=== PATIENT | female | born 1975 | race Caucasian/White ===

== ENCOUNTER 2017-05-25 18:59 | Emergency (ER) | payer BC ==
[2017-05-25] MEDS ORDERED: PROCHLORPERAZINE MALEATE 5 MG TABLET PO ONE (20:06)
[2017-05-25] MEDS ORDERED: HYDROCODONE/ACETAMINOPHEN 5-325 MG TABLET PO ONE (20:06)
[2017-05-25] MEDS ORDERED: PROCHLORPERAZINE MALEATE 10 MG TABLET ONE (20:20)
--- NOTE | 2017-05-25 20:47 | ER Document Report ---
ED Fall <LA ANDERSON - Last Filed: 05/25/17 21:19> - General Mode of Arrival: Ambulatory Information source: Patient TRAVEL OUTSIDE OF THE [place] IN LAST 30 DAYS: No <ALFREDO KIMBROUGH - Last Filed: 05/25/17 22:17> - General Chief Complaint: Fall Injury Stated Complaint: FALL/HEAD LACERATION Time Seen by Provider: 05/25/17 19:52 Notes: Patient is a 41 year old female presenting to the ED for a fall. Patient states she slipped on a plastic bag and fell into a glass cabinet. Patient states she broke the glass and complains of headache, pain to her skin where she got cut from the glass, and states her neck is stiff. Patient states she has a history of migraines and her headache feels similar to such but it she believes it is being caused by the injury. Patient states she normally takes ibuprofen and sleeps when she gets a migraine. Patient states she may have glass in her hair. Patient also has a history of anxiety and depression. 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 PCP: Katalina Alegria (ALFREDO KIMBROUGH) - Related data Allergies/Adverse Reactions: Pork/Porcine Containing Products Allergy (Verified 05/25/17 19:18) shellfish derived Allergy (Verified 05/25/17 19:18) Sulfa (Sulfonamide Antibiotics) Allergy (Verified 05/25/17 19:13) Past Medical History - General Information source: Patient - Social History Smoking Status: Never Smoker Cigarette use (# per day): No Chew tobacco use (# tins/day): No Smoking Education Provided: No Frequency of alcohol use: None Drug Abuse: None Family History: None Patient has suicidal ideation: No Patient has homicidal ideation: No Neurological Medical History: Reports: Hx Migraine Psychiatric Medical History: Reports: Hx Anxiety, Hx Depression Past Surgical History: Reports: Other - eye surgery as a child to fix cross-eyed <ALFREDO KIMBROUGH - Last Filed: 05/25/17 22:17> Review of Systems - Review of Systems Constitutional: No symptoms reported EENT: No symptoms reported Cardiovascular: No symptoms reported Respiratory: No symptoms reported Gastrointestinal: No symptoms reported Genitourinary: No symptoms reported Female Genitourinary: No symptoms reported Musculoskeletal: See HPI, Neck pain, Other - head/scalp pain Skin: See HPI, Other - laceration Hematologic/Lymphatic: No symptoms reported Neurological/Psychological: See HPI, Headaches -: Yes All other systems reviewed and negative <ALFREDO KIMBROUGH - Last Filed: 05/25/17 22:17> Physical Exam <MONICA,LA - Last Filed: 05/25/17 21:19> - Vital signs Interpretation: Normal <ALFREDO KIMBROUGH - Last Filed: 05/25/17 22:17> - Vital signs Vitals: Temp Pulse Resp BP Pulse Ox 98 F 75 16 137/89 H 96 05/25/17 19:13 05/25/17 19:13 05/25/17 19:13 05/25/17 19:13 05/25/17 19:13 - Notes Notes: GENERAL: Alert, interacts well. No acute distress. HEAD: Normocephalic. Small superficial laceration to the forehead just right to midline and located at the hairline. Tenderness with palpation around this area and into the scalp. EYES: Appear normal. Pupils equal, round, and reactive to light. ENT: Moist mucus membranes, tongue midline. NECK: C-collar in place. Tenderness to palpation to the upper cervical spine. LUNGS: Clear to auscultation bilaterally, no wheezes, rales, or rhonchi. No respiratory distress. HEART: Regular rate and rhythm. No murmurs, gallops, or rubs. ABDOMEN: Soft, non-tender. Non-distended. Normal bowel sounds. EXTREMITIES: Moves all 4 extremities spontaneously. Normal strength. No edema. NEUROLOGICAL: Alert and oriented x3. Normal speech. No focal neurological deficits. GCS 15. PSYCH: Normal affect, normal mood. SKIN: Warm, dry, normal turgor. No rashes or lesions noted. (ALFREDO KIMBROUGH) Course - Diagnostic Test Radiology reviewed: Image reviewed, Reports reviewed - CT scan cervical spine is unremarkable, CT of the head shows extensive sinus disease with acute sinusitis. <LA ANDERSON - Last Filed: 05/25/17 21:19> <ALFREDO KIMBROUGH - Last Filed: 05/25/17 22:17> - Re-evaluation Re-evalutation: 05/25/17 21:[address] scans do not show acute injury, however it does show extensive sinus disease with acute sinusitis. The patient reports that she is currently on Ceftin for the sinus disease, that she was only another antibiotic previously. (LA ANDERSON) - Vital Signs Vital signs: Temp Pulse Resp BP Pulse Ox 98 F 75 16 137/89 H 96 05/25/17 19:13 05/25/17 19:13 05/25/17 20:05 05/25/17 19:13 05/25/17 19:13 Discharge <LA ANDERSON - Last Filed: 05/25/17 21:19> <ALFREDO KIMBROUGH - Last Filed: 05/25/17 22:17> - Discharge Clinical Impression: Forehead laceration Qualifiers: Encounter type: initial encounter Qualified Code(s): S01.81XA - Laceration without foreign body of other part of head, initial encounter Scalp contusion Qualifiers: Encounter type: initial encounter Qualified Code(s): S00.03XA - Contusion of scalp, initial encounter Cervical strain Qualifiers: Encounter type: initial encounter Qualified Code(s): S16.1XXA - Strain of muscle, fascia and tendon at neck level, initial encounter Sinusitis Qualifiers: Sinusitis location: unspecified location Chronicity: acute Recurrence: not specified as recurrent Qualified Code(s): J01.90 - Acute sinusitis, unspecified Condition: Stable Disposition: HOME, SELF-CARE Additional Instructions: Contusion: Your injury has resulted in a contusion -- a crushing of the deep tissues. No injury to important structures was detected during the physician's exam. Contusions vary in the amount of pain they cause, and in the length of time required for healing. Typically, the area will become bruised, and will remain painful to touch for two or three weeks. However, most patients are back to working and playing within a few days. After the initial period of rest and cold-packs, your symptoms (together with the doctor's recommendations) will determine how rapidly you can get back to full activity. Usually this means "do what feels okay, but don't do things that hurt." If re-examination was recommended, it's important to follow up as instructed. Call the doctor or return any time if pain increases, if swelling becomes severe, if you develop numbness or weakness in an injured extremity, or if any other alarming symptoms occur. Sinusitis: You have sinusitis, an infection of the sinus cavities of the face. The sinuses are air-filled chambers which open into the inside of the nose. Bacteria and pus fill a sinus, causing pain, drainage, and fever. Sinusitis is treated with antibiotics. Often, expectorants (to thin the sinus mucous) or decongestants (to reduce swelling) are prescribed as well. Healing requires seven to 10 days. Avoid chemical fumes, pollens, dusts, and smoke (especially cigarette smoke ). Keep the air humidified in your bedroom and work area and take plenty of liquids by mouth. This condition can be serious if the infection spreads. If your symptoms worsen, or if you develop severe headache, high fever, stiff neck, or a rash, you must call the doctor or return for re-evaluation. Use ice packs to the painful scalp areas and neck areas tonight. Going the shower to rinse your hair and come out the glass fragments. Using cream rinse should make it easier. Take the pain medication as dispensed if needed tonight. Take the CD of your scan and radiology report to follow-up with your primary care provider. RETURN TO THE EMERGENCY ROOM IF ANY NEW OR WORSENING SYMPTOMS. Referrals: KATALINA ALEGRIA PA-C [Primary Care Provider] - Follow up in 3-5 days Scribe Attestation: 05/25/17 21:19 I personally performed the services described in the documentation, reviewed and edited the documentation which was dictated to the scribe in my presence, and it accurately records my words and actions. (LA ANDERSON) Scribe Documentation - Scribe Written by Shelbi:: Shelbi Tucker 05/25/2017 22:17 acting as scribe for :: Monica <ALFREDO KIMBROUGH - Last Filed: 05/25/17 22:17>
--- NOTE | 2017-05-25 21:04 | RADIOLOGY REPORT (SQ) ---
EXAM DESCRIPTION: CT HEAD WITHOUT COMPLETED DATE/TIME: 05/25/2017 8:40 pm REASON FOR STUDY: fall, hit head, ALVES, neck pain COMPARISON: None. TECHNIQUE: Axial images acquired through the brain without intravenous contrast. Images reviewed wi th bone, brain and subdural windows. Images stored on PACS. All CT scanners at this facility use dose modulation, iterative reconstruction, and/or weight based d osing when appropriate to reduce radiation dose to as low as reasonably achievable (ALARA). [facility]: Dose Right [facility]: CareDose [facility]: Dose Right [facility]: Teradose 4D [facility]: [place] RADIATION DOSE: Up-to-date CT equipment and radiation dose reduction techniques were employed. CTDIv ol: 64.6 mGy. DLP: 1163 mGy-cm. mGy. LIMITATIONS: None. FINDINGS: VENTRICLES: Normal size and contour. CEREBRUM: No masses. No hemorrhage. No midline shift. No evidence for acute infarction. Normal gra y/white matter differentiation. No areas of low density in the white matter. CEREBELLUM: No masses. No hemorrhage. No alteration of density. No evidence for acute infarction. EXTRAAXIAL SPACES: No fluid collections. No masses. ORBITS AND GLOBE: No intra- or extraconal masses. Normal contour of globe without masses. CALVARIUM: No fracture. PARANASAL SINUSES: Near complete opacification of the ethmoid sinuses. Mucosal thickening involving the floors of the maxillary sinuses. Small right maxillary and sphenoid compartment fluid levels. SOFT TISSUES: No mass or hematoma. OTHER: No other significant finding. IMPRESSION: 1. No evidence of calvarial injury or intracranial hemorrhage. 2. Acute sinusitis COMMENT: Quality ID # 436: Final reports with documentation of one or more dose reduction techniques (e.g., Automated exposure control, adjustment of the mA and/or kV according to patient size, use of iterative reconstruction technique) TECHNICAL DOCUMENTATION: JOB ID: [id number] [employer]- All Rights Reserved
--- NOTE | 2017-05-25 21:08 | RADIOLOGY REPORT (SQ) ---
EXAM DESCRIPTION: CT CERVICAL SPINE WITHOUT COMPLETED DATE/TIME: 05/25/2017 8:45 pm REASON FOR STUDY: fall, hit head, ALVES, neck pain COMPARISON: None. TECHNIQUE: Axial images acquired through the cervical spine without intravenous contrast. Images re viewed with lung, soft tissue and bone windows. Reconstructed coronal and sagittal MPR images review ed. Images stored on PACS. All CT scanners at this facility use dose modulation, iterative reconstruction, and/or weight based d osing when appropriate to reduce radiation dose to as low as reasonably achievable (ALARA). [facility]: Dose Right [facility]: CareDose [facility]: Dose Right [facility]: Teradose 4D [facility]: [employer] RADIATION DOSE: Up-to-date CT equipment and radiation dose reduction techniques were employed. CTDIv ol: 14.2 mGy. DLP: 285 mGy-cm. mGy. LIMITATIONS: None. FINDINGS: ALIGNMENT: Anatomic. MINERALIZATION: Normal. VERTEBRAL BODIES: No fractures or dislocation. DISCS: No significant disc disease. FACETS, LATERAL MASSES, POSTERIOR ELEMENTS: No fractures. No dislocation. No acute findings. HARDWARE: None in the spine. VISUALIZED RIBS: No fractures. LUNG APICES AND SOFT TISSUES: No significant or acute findings. OTHER: No other significant finding. IMPRESSION: NO ACUTE OR SIGNIFICANT FINDINGS IN THE CERVICAL SPINE. TECHNICAL DOCUMENTATION: JOB ID: [id number] Quality ID # [id number]: Final reports with documentation of one or more dose reduction techniques (e.g., Au tomated exposure control, adjustment of the mA and/or kV according to patient size, use of iterative reconstruction technique) 2010 [employer]- All Rights Reserved
[2017-05-25] MEDS ORDERED: HYDROCODONE/ACETAMINOPHEN 5-325 MG 6 TAB/DSPK PO PRN (21:14)
[2017-05-26 05:16] VITALS: BP 108/60
== END 2017-05-25 21:41 | disposition home or self-care (01) ==
LOC: ER 18:59
DX: S01.81XA Laceration without foreign body of other part of head, initial encounter (principal); S00.03XA Contusion of scalp, initial encounter; S16.1XXA Strain of muscle, fascia and tendon at neck level, initial encounter; J01.90 Acute sinusitis, unspecified; W01.110A Fall on same level from slipping, tripping and stumbling with subsequent striking against sharp glass, initial encounter; Z88.2 Allergy status to sulfonamides; Z91.013 Allergy to seafood
CPT/HCPCS: 70450; 72125; 99284; S0183

== ENCOUNTER → 2017-05-31 | Outpatient (CLI) | payer BC ==
--- NOTE | 2017-05-31 12:02 | RADIOLOGY REPORT (SQ) ---
EXAM DESCRIPTION: SHOULDER RIGHT 2 OR MORE VIEWS COMPLETED DATE/TIME: 05/31/2017 10:26 am REASON FOR STUDY: PAIN IN RIGHT SHOULDER M25.511 PAIN IN RIGHT SHOULDER COMPARISON: None. NUMBER OF VIEWS: Three views. TECHNIQUE: Internal rotation, external rotation, and Y view images acquired of the right shoulder. LIMITATIONS: None. FINDINGS: MINERALIZATION: Normal. BONES: No acute fracture or dislocation. No worrisome bone lesions. JOINTS: No dislocation. VISUALIZED LUNGS AND RIBS: No pneumothorax. No rib fracture. SOFT TISSUES: No radiopaque foreign body. OTHER: No other significant finding. IMPRESSION: NEGATIVE STUDY OF THE RIGHT SHOULDER. NO RADIOGRAPHIC EVIDENCE OF ACUTE INJURY. TECHNICAL DOCUMENTATION: JOB ID: [id number] [employer]- All Rights Reserved
== END ==
LOC: OD 10:15
PROVIDERS: ATTEND Physician Assistant
DX: M25.511 Pain in right shoulder (principal)

== ENCOUNTER 2017-11-17 13:52 | Emergency (ER) | payer BC ==
[2017-11-17] MEDS ORDERED: ASPIRIN 81 MG TABLET, CHEWABLE PO ONE (14:44)
--- NOTE | 2017-11-17 14:44 | ER Document Report ---
ED Neuro Symptoms/Deficit - General Mode of Arrival: Ambulatory Information source: Patient TRAVEL OUTSIDE OF THE [place] IN LAST 30 DAYS: No <CORY SHELL - Last Filed: 11/17/17 23:03> <CATHI HA - Last Filed: 11/17/17 23:23> - General Chief Complaint: General Weakness Stated Complaint: HEADACHE Time Seen by Provider: 11/17/17 14:17 Notes: Patient is a 42 year old female that presents to the emergency department today with complaints of facial numbness. Patient states 2 days ago she had "consistent PVCs" with associated right shoulder pain and pain between her shoulder blades. Patient states today when eating lunch she noticed facial numbness left greater than right with right-sided facial droop. Patient mentions she has also felt "winded" the last few days when going upstairs. Patient denies any vision changes. (CORY SHELL) - Related Data Allergies/Adverse Reactions: Pork/Porcine Containing Products Allergy (Verified 05/25/17 19:18) shellfish derived Allergy (Verified 05/25/17 19:18) Sulfa (Sulfonamide Antibiotics) Allergy (Verified 05/25/17 19:13) Past Medical History - General Information source: Patient - Social History Smoking Status: Current Some Day Smoker Chew tobacco use (# tins/day): No Frequency of alcohol use: None Drug Abuse: None Lives with: Family Family History: Other - Brother of [place] at 48 Patient has suicidal ideation: No Patient has homicidal ideation: No Neurological Medical History: Reports: Hx Migraine Psychiatric Medical History: Reports: Hx Anxiety, Hx Depression Past Surgical History: Reports: Other - eye surgery as a child to fix cross-eyed <CORY SHELL - Last Filed: 11/17/17 23:03> Review of Systems - Review of Systems Constitutional: No symptoms reported EENT: denies: Blurred vision Cardiovascular: See HPI, Palpitations Respiratory: No symptoms reported Gastrointestinal: No symptoms reported Genitourinary: No symptoms reported Female Genitourinary: No symptoms reported Musculoskeletal: See HPI, Joint pain - right shoulder, shoulder blade pain Skin: No symptoms reported Hematologic/Lymphatic: No symptoms reported Neurological/Psychological: See HPI, Numbness - bilateral facial numbness L>R -: Yes All other systems reviewed and negative <CORY SHELL - Last Filed: 11/17/17 23:03> Physical Exam <CORY SHELL - Last Filed: 11/17/17 23:03> <CATHI HA - Last Filed: 11/17/17 23:23> - Vital signs Vitals: Temp Pulse Resp BP Pulse Ox 98.8 F 81 18 144/96 H 97 11/17/17 13:56 11/17/17 13:56 11/17/17 13:56 11/17/17 13:56 11/17/17 13:56 - Notes Notes: PHYSICAL EXAM GENERAL: Alert, interacts well. No acute distress. HEAD: Normocephalic, atraumatic. EYES: Pupils equal, round, and reactive to light. Extraocular movements intact. Disconjugate gaze, Right eye deviates to the right. Right eye corrects when left eye is shut. ENT: Oral mucosa moist, tongue midline. NECK: Full range of motion. Supple. Trachea midline. LUNGS: Clear to auscultation bilaterally, no wheezes, rales, or rhonchi. No respiratory distress. HEART: Regular rate with occasional ectopy . No murmurs, gallops, or rubs. ABDOMEN: Soft, non-tender. Non-distended. Bowel sounds present in all 4 quadrants. No guarding, rigidity, or rebound. EXTREMITIES: Moves all 4 extremities spontaneously. No edema, radial and dorsalis pedis pulses 2/4 bilaterally. No cyanosis. NEUROLOGICAL: Alert and oriented x3. Normal speech. Biceps and patellar DTRs 2+ bilaterally. Complains of generalized decreased sensation on the right side of the face. Right sided weakness with closing eye. Right sided facial droop most pronounced at corner of mouth on the right. PSYCH: Normal affect, normal mood. SKIN: Warm, dry, normal turgor. No rashes or lesions noted. (CORY SHELL) Course - Laboratory Result Diagrams: 11/17/17 15:20 11/17/17 15:20 <CORY SHELL - Last Filed: 11/17/17 23:03> - Laboratory Result Diagrams: 11/17/17 15:20 11/17/17 15:20 <CATHI HA - Last Filed: 11/17/17 23:23> - Re-evaluation Re-evalutation: 11/17/17 20:37 CBC unremarkable, CMP unremarkable, cardiac enzymes negative 2, d-dimer is elevated at 0.63, chest x-ray is unremarkable, CT angiogram of the chest was ordered due to the elevated d-dimer and her chest pain with shortness of breath , and is negative for pulmonary embolism but does show granuloma in the left lingula as well as left calcified hilar lymph nodes which is consistent with sequela of prior granulomatous disease. EKG is nonischemic 2. Patient has had multiple PVCs while in the emergency department however she has not had any ventricular tachycardia or persistent ventricular rhythm. No indication for medication or admission at this time. Patient will be discharged to home, her actually works with a local professor of theology, they will either follow up with him for 1 of his partners for a Holter monitor. 11/17/17 23:22 Facial droop consistent with Vann's palsy, no evidence of stroke, no indication for CT scan of the head. Patient will be started on antivirals, symptoms are not severe, no indication for steroids. Discharged home. (CATHI HA) - Vital Signs Vital signs: Temp Pulse Resp BP Pulse Ox 98.7 F 81 15 111/81 96 11/17/17 21:01 11/17/17 14:06 11/17/17 21:36 11/17/17 21:36 11/17/17 21:36 - Laboratory Laboratory results interpreted by me: 11/17/17 15:20 D-Dimer 0.63 H - EKG Interpretation by Me Additional EKG results interpreted by me: 11/17/17 20:38 EKG shows sinus rhythm at a rate of 86, multiple PACs, unifocal, no ST segment elevations or depressions, no T-wave inversions per my interpretation. Repeat EKG shows sinus rhythm at a rate of 67, computer interpreted as PAC but I disagree it is a PVC, no ST segment elevations or depressions, no T-wave inversions per my interpretation. (CATHI HA) Discharge <CORY SHELL - Last Filed: 11/17/17 23:03> <CATHI HA - Last Filed: 11/17/17 23:23> - Discharge Clinical Impression: Palpitations, PVC (premature ventricular contraction), Chest pain of uncertain etiology, Vann's palsy Condition: Stable Disposition: HOME, SELF-CARE Additional Instructions: I do not know exactly what is causing her chest pain. There is no evidence of heart attack or blood clot to the lungs today. You are having multiple premature ventricular contractions. Sometimes these can cause the feeling of palpitations that she were having. I recommend that you follow-up with a professor of theology to have a Holter monitor placed. Please return to the emergency department for any new or concerning symptoms, worsening chest pain, shortness of breath or passing out. 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 It's caused by a temporary paralysis of the nerve which controls the muscles. The cause is unknown, but it's thought to be caused by a virus in most cases. The physician's exam shows that this is NOT a stroke. Vann's Palsy usually gets better by itself. There is no cure. Sometimes cortisone-type medication is given to decrease nerve swelling. This problem is usually temporary, lasting about three weeks. During that time, you must protect the eye from injury (because the eyelid muscles often do not cover it). Ointment or a patch may be necessary. Be sure to follow up as instructed, and call the doctor at once if new symptoms arise. Report any eye pain, decreasing vision or double vision, or any numbness or weakness outside the face area. Prescriptions: Acyclovir 800 mg PO 5XD #50 tablet Referrals: KATALINA RIVERA PA-C [Primary Care Provider] - Follow up as needed DIYA LOYD MD [EMERITUS] - Follow up as needed CAMDEN BINGHAM MD [ACTIVE STAFF] - Follow up in 1 week Scribe Attestation: 11/17/17 23:23 I personally performed the services described in the documentation, reviewed and edited the documentation which was dictated to the scribe in my presence, and it accurately records my words and actions. (CATHI HA) Scribe Documentation - Scribe Written by Shelbi:: Shelbi Rinaldi, 11/17/2017 [id number] acting as scribe for :: Belen <CORY SHELL - Last Filed: 11/17/17 23:03>
--- NOTE | 2017-11-17 15:10 | RADIOLOGY REPORT (SQ) ---
EXAM DESCRIPTION: CHEST SINGLE VIEW COMPLETED DATE/TIME: 11/17/2017 3:03 pm REASON FOR STUDY: chest pain, SOB COMPARISON: None. EXAM PARAMETERS: NUMBER OF VIEWS: One view. TECHNIQUE: Single frontal radiographic view of the chest acquired. RADIATION DOSE: NA LIMITATIONS: None. FINDINGS: LUNGS AND PLEURA: No opacities, masses or pneumothorax. No pleural effusion. MEDIASTINUM AND HILAR STRUCTURES: No masses. Contour normal. HEART AND VASCULAR STRUCTURES: Heart normal in size. Normal vasculature. BONES: No acute findings. HARDWARE: None in the chest. OTHER: No other significant finding. IMPRESSION: NO ACUTE RADIOGRAPHIC FINDING IN THE CHEST. TECHNICAL DOCUMENTATION: JOB ID: [id number] [employer]- All Rights Reserved Reading location - IP/workstation name: [email or web address]
[2017-11-17 15:36] LABS: ABSOLUTE BASOPHILS # (AUTO) 0.1 10^3/uL (0.0-0.2); ABSOLUTE EOSINOPHILS # (AUTO) 0.1 10^3/uL (0.0-0.6); ABSOLUTE LYMPHOCYTES (AUTO) 2.1 10^3/uL (0.5-4.7); ABSOLUTE MONOCYTES (AUTO) 0.6 10^3/uL (0.1-1.4); ABSOLUTE NEUT (AUTO) 3.2 10^3/uL (1.7-8.2); BASOPHILS % (AUTO) 1.2 % (0-2); EOSINOPHILS % (AUTO) 2.1 % (0-6); HEMATOCRIT 37.1 % (36.0-47.0); HEMOGLOBIN 12.8 g/dL (12.0-15.5); LYMPHOCYTES % (AUTO) 34.8 % (13-45); MEAN CORPUSCULAR HEMOGLOBIN 30.9 pg (27.0-33.4); MEAN CORPUSCULAR HGB CONC 34.5 g/dL (32.0-36.0); MEAN CORPUSCULAR VOLUME 89 fl (80-97); MONOCYTES % (AUTO) 9.7 % (3-13); PLATELET COUNT 221 10^3/uL (150-450); RED BLOOD COUNT 4.15 10^6/uL (3.72-5.28); RED CELL DISTRIBUTION WIDTH 12.9 % (11.5-14.0); SEGMENTED NEUTROPHILS % (AUTO) 52.2 % (42-78); TOTAL CELLS COUNTED % (AUTO) 100 %; WHITE BLOOD COUNT 6.1 10^3/uL (4.0-10.5)
[2017-11-17 15:58] LABS: ALANINE AMINOTRANSFERASE 25 U/L (9-52); ALKALINE PHOSPHATASE 73 U/L (38-126); ANION GAP 8 (5-19); ASPARTATE AMINO TRANSFERASE 23 U/L (14-36); BILIRUBIN,DIRECT 0.2 mg/dL (0.0-0.4); BILIRUBIN,TOTAL 0.2 mg/dL (0.2-1.3); BLOOD UREA NITROGEN 16 mg/dL (7-20); CALCIUM 9.1 mg/dL (8.4-10.2); CARBON DIOXIDE 25 mmol/L (22-30); CHLORIDE 107 mmol/L (98-107); CREATINE KINASE 39 U/L (30-135); GLUCOSE 95 mg/dL (75-110); POTASSIUM 4.1 mmol/L (3.6-5.0); SODIUM 140.2 mmol/L (137-145); TOTAL PROTEIN 7.1 g/dL (6.3-8.2)
[2017-11-17 16:10] LABS: CREATINE KINASE MB 0.31 ng/mL (<4.55)
[2017-11-17 16:17] LABS: TROPONIN I < 0.012 ng/mL
--- NOTE | 2017-11-17 17:10 | RADIOLOGY REPORT (SQ) ---
EXAM DESCRIPTION: CTA CHEST COMPLETED DATE/TIME: 11/17/2017 4:54 pm REASON FOR STUDY: chest pain, SOB, elevated d-dimer COMPARISON: 11/17/2017 TECHNIQUE: CT scan of the chest performed using helical scanning technique with dynamic intravenous contrast injection. Images reviewed with lung, soft tissue and bone windows. Reconstructed coronal and sagittal MPR images reviewed. Additional 3 dimensional post-processing performed to develop Maximal Intensity Projection images (MD P). All images stored on PACS. All CT scanners at this facility use dose modulation, iterative reconstruction, and/or weight based d osing when appropriate to reduce radiation dose to as low as reasonably achievable (ALARA). [facility]: Dose Right [facility]: CareDose [facility]: Dose Right [facility]: Teradose 4D [facility]: [employer] CONTRAST TYPE AND DOSE: contrast/concentration: Isovue 370.00 mg/ml; Total Contrast Delivered: 75.0 ml; Total Saline Delivered: 88.1 ml 75.2 mL Isovue 370- low osmolar. Contrast bolus optimized for the pulmonary arteries. Not diagnostic for the aorta. RENAL FUNCTION: GFR > 60. RADIATION DOSE: CT Rad equipment meets quality standard of care and radiation dose reduction techniq ues were employed. CTDIvol: 14.3 - 19.8 mGy. DLP: 497 mGy-cm. . LIMITATIONS: None. FINDINGS: LUNGS AND PLEURA: No masses, infiltrates, pneumothorax. No pleural effusion. There is a small calcified granuloma in the lingula. AORTA AND GREAT VESSELS: No aneurysm. Contrast bolus not optimized for the aorta. HEART: No pericardial effusion. No significant coronary artery calcifications. PULMONARY ARTERIES: No emboli visualized in the main pulmonary arteries or the segmental branches. HILAR AND MEDIASTINAL STRUCTURES: No masses. There is a calcified left hilar lymph node present. HARDWARE: None in the chest. UPPER ABDOMEN: No significant findings. Limited exam. THYROID AND OTHER SOFT TISSUES: No masses. No adenopathy. BONES: No acute or significant finding. 3D MIPS: Confirm above findings. OTHER: No other significant finding. IMPRESSION: 1. No evidence of pulmonary embolism 2. Granuloma in the left lingula as well as left hilar calcified lymph node. This is consistent wit h sequela of prior granulomatous disease. COMMENT: Quality ID # [id number]: Final reports with documentation of one or more dose reduction techniques (e.g., Automated exposure control, adjustment of the mA and/or kV according to patient size, use of iterative reconstruction technique) TECHNICAL DOCUMENTATION: JOB ID: [id number] [employer]- All Rights Reserved Reading location - IP/workstation name: [email or web address]
[2017-11-17 21:45] VITALS: BP 111/81
--- NOTE | 2017-11-17 21:58 | EKG REPORT ---
SEVERITY:- OTHERWISE NORMAL ECG - SINUS RHYTHM ATRIAL PREMATURE COMPLEX : Confirmed by: Floresita Thornton 17-Nov-2017 21:58:05
--- NOTE | 2017-11-17 21:59 | EKG REPORT ---
SEVERITY:- ABNORMAL ECG - SINUS RHYTHM MULTIPLE ATRIAL PREMATURE COMPLEXES : Confirmed by: Floresita Thornton 17-Nov-2017 21:59:15
== END 2017-11-17 22:05 | disposition home or self-care (01) ==
LOC: ER 13:52
DX: R53.1 Weakness (principal); R51 Headache; Z88.2 Allergy status to sulfonamides; Z91.013 Allergy to seafood
CPT/HCPCS: 36415; 71045; 71275; 80053; 82550; 82553; 84484; 85025; 85379; 93005; 93010; 99285

== ENCOUNTER → 2018-01-15 | Outpatient (CLI) | payer BC ==
--- NOTE | 2018-01-15 19:15 | RADIOLOGY REPORT (SQ) ---
EXAM DESCRIPTION: CHEST 2 VIEWS COMPLETED DATE/TIME: 01/15/2018 6:49 pm REASON FOR STUDY: COUGH COMPARISON: 11/17/2017 EXAM PARAMETERS: NUMBER OF VIEWS: two views TECHNIQUE: Digital Frontal and Lateral radiographic views of the chest acquired. RADIATION DOSE: NA LIMITATIONS: none FINDINGS: LUNGS AND PLEURA: No opacities, masses or pneumothorax. No pleural effusion. MEDIASTINUM AND HILAR STRUCTURES: No masses or contour abnormalities. HEART AND VASCULAR STRUCTURES: Heart normal size. No evidence for failure. BONES: No acute findings. HARDWARE: None in the chest. OTHER: No other significant finding. IMPRESSION: NO ACUTE RADIOGRAPHIC FINDING IN THE CHEST. TECHNICAL DOCUMENTATION: JOB ID: [id number] [employer]- All Rights Reserved Reading location - IP/workstation name: [email or web address]
== END ==
LOC: RAD 18:32
PROVIDERS: ATTEND Nurse Practitioner Family
DX: R05 Cough (principal)
CPT/HCPCS: 71046

== ENCOUNTER → 2019-10-16 | Outpatient (CLI) | payer OTHER ==
--- NOTE | 2019-10-16 13:15 | RADIOLOGY REPORT (SQ) ---
EXAM DESCRIPTION: KUB COMPLETED DATE/TIME: 10/16/2019 10:59 am REASON FOR STUDY: UPPER ABDOMINAL PAIN R10.10 UPPER ABDOMINAL PAIN, UNSPECIFIED COMPARISON: None. NUMBER OF VIEWS: One view. TECHNIQUE: Supine radiographic image of the abdomen acquired. LIMITATIONS: None. FINDINGS: BOWEL GAS PATTERN: Normal bowel gas pattern. No dilated loops. Moderate colonic fecal bur den. Multiple scattered opacified densities within the colon may be on the basis of something ingest ed by the patient. CALCIFICATIONS: No suspicious calcifications. SOFT TISSUES: No gross mass or suggestion of organomegaly. HARDWARE: None in the abdomen. BONES: No acute fracture. Spina bifida occulta at S1, normal anatomic variant. OTHER: No other significant finding. IMPRESSION: 1. NO RADIOGRAPHIC EVIDENCE FOR ACUTE ABDOMINAL DISEASE. Moderate colonic fecal burden. TECHNICAL DOCUMENTATION: JOB ID: [id number] [employer]- All Rights Reserved Reading location - IP/workstation name: [email or web address]
== END ==
LOC: OD 10:48
PROVIDERS: ATTEND Physician Assistant
DX: R10.10 Upper abdominal pain, unspecified (principal)
CPT/HCPCS: 74018